=== PATIENT | female | born 1955 | race Hispanic/Latino ===

== ENCOUNTER → 2017-06-13 | Outpatient (CLI) | payer OTHER ==
[~2017-06-13] MED LIST: ALBU8.5H8 IH; AZEL137S11 NS; BUPR300T54 PO; CETI-261 PO; CLON0.5T4 PO; FLUT16H NASAL; FLUT1BLS IH; HYDR-4068 PO; IMIP10TA5 PO; MECL12.585 PO; MONT10TA24 PO; NITR0.4T SL; QUET300T44 PO; TRAZ300T2 PO; VERA-7 PO
== END | disposition home or self-care (01) ==
LOC: RAH 15:48
PROVIDERS: ATTEND Physical Medicine & Rehabilitation
DX: M41.85 Other forms of scoliosis, thoracolumbar region (principal)
CPT/HCPCS: 72070; 72081; 72100

== ENCOUNTER 2021-07-12 14:31 | Emergency (ER) | payer OTHER ==
[~2021-07-12] VITALS: Ht 160 cm; Wt 78.0 kg
[~2021-07-12 14:31] MED LIST changes: +BUPR-317 PO; -BUPR300T54 PO; +MECL-226 PO; -MECL12.585 PO; +MONT-39 PO; -MONT10TA24 PO; +QUET300T19 PO; -QUET300T44 PO; -VERA-7 PO; +VERA240T95 PO
[2021-07-12] MEDS ORDERED: DICL50TA9 PO (16:00)
[2021-07-12 16:18] VITALS: BP 168/85
== END 2021-07-12 16:19 | disposition home or self-care (01) ==
LOC: EDH 14:34
DX: S00.83XA Contusion of other part of head, initial encounter (principal); S19.9XXA Unspecified injury of neck, initial encounter; Z79.51 Long term (current) use of inhaled steroids; Z79.01 Long term (current) use of anticoagulants; W18.39XA Other fall on same level, initial encounter; Y93.89 Activity, other specified; Y92.89 Other specified places as the place of occurrence of the external cause; Y99.8 Other external cause status
CPT/HCPCS: 70450; 72125

== ENCOUNTER 2022-03-02 20:28 | Observation (INO) | payer OTHER ==
[~2022-03-02] VITALS: Ht 157.5 cm; Wt 78.1 kg
[~2022-03-02 20:28] MED LIST changes: +DICL50TA9 PO
[2022-03-02] MEDS ORDERED: NITROGLYCERIN 1GM OINT 1 INCH/1GM TD ONE ×2 (20:49→21:00)
[2022-03-02 20:55] LABS: BASOPHILS % (AUTO) 0.4 % (0.0-5.0); EOSINOPHILS % (AUTO) 1.1 % (0.0-8.0); HEMATOCRIT 35.7 % (36-48); LYMPHOCYTES % (AUTO) 24.9 % (21.0-51.0); MEAN CORPUSCULAR HEMOGLOBIN 30.2 pg (27.0-33.0); MEAN CORPUSCULAR HGB CONC 35.6 g/dL (32.0-36.0); MEAN CORPUSCULAR VOLUME 84.8 fL (79-99); MONOCYTES % (AUTO) 10.5 % (3.0-13.0); NEUTROPHILS % (AUTO) 62.8 % (40.0-77.0); PLATELET COUNT (AUTO) 221 K/uL (130-400); RED BLOOD CELL COUNT(AUTO) 4.21 MIL/uL (4.00-5.50); RED CELL DISTRIBUTION WIDTH 12.1 % (11.0-15.5)
[2022-03-02 21:15] LABS: ALBUMIN 3.9 g/dL (3.5-5.0); CREATININE 1.2 mg/dL (0.5-1.5); TOTAL PROTEIN, SERUM 7.3 g/dL (6.0-8.3)
[2022-03-02 21:16] LABS: POTASSIUM 2.6 mmol/L (3.5-5.1)
[2022-03-02] MEDS ORDERED: KCL 20 MEQ ERTAB PO ONE ×2 (21:40→22:00)
[2022-03-02 21:52] LABS: APPEARANCE,URINE CLEAR (CLEAR); BILIRUBIN,URINE NEGATIVE (NEGATIVE); COLOR,URINE LIGHT-YELLOW (YELLOW); GLUCOSE, URINE (UA) NEGATIVE (NEGATIVE); KETONES,URINE NEGATIVE (NEGATIVE); LEUKOCYTE ESTERASE ,URINE NEGATIVE Leu/uL (NEGATIVE); NITRATE,URINE NEGATIVE (NEGATIVE); OCCULT BLOOD,URINE NEGATIVE (NEGATIVE); PH,URINE 6.5 (5.0-8.0); PROTEIN,URINE NEGATIVE (NEGATIVE); UROBILINOGEN,URINE 0.2 mg/dL (0.2-1.0)
[2022-03-02] MEDS ORDERED: DOCUSATE SODIUM 100 MG CAP PO PRN (23:00)
[2022-03-02] MEDS ORDERED: ONDANSETRON 4MG INJ IVP PRN (23:00)
[2022-03-02] MEDS ORDERED: LACTULOSE 20 GM/30 ML UDCUP PO PRN (23:00)
[2022-03-02] MEDS ORDERED: ALBUTEROL 0.083% 2.5 MG/3 ML INH IH PRN (23:00)
[2022-03-02] MEDS ORDERED: HYDRALAZINE 20MG/ML VIAL IV PRN (23:00)
[2022-03-02] MEDS ORDERED: CLONIDINE HCL 0.1 MG TABLET PO PRN (23:00)
[2022-03-02] MEDS ORDERED: TEMAZEPAM 15 MG CAPSULE PO PRN (23:00)
[2022-03-02] MEDS ORDERED: TRAMADOL HCL 50 MG TABLET PO PRN (23:00)
[2022-03-02] MEDS ORDERED: ACETAMINOPHEN 325 MG TAB PO PRN (23:00)
[2022-03-02] MEDS ORDERED: HYDR25TA PO (23:59)
[2022-03-02] MEDS ORDERED: OXYB10TA30 PO (23:59)
[2022-03-02] MEDS ORDERED: ATOR10TA69 PO (23:59)
[2022-03-02] MEDS ORDERED: QUET100T PO (23:59)
[2022-03-02] MEDS ORDERED: BUSP15 PO (23:59)
[2022-03-02] MEDS ORDERED: QUET400T PO (23:59)
[2022-03-03] MEDS ORDERED: NITROGLYCERIN 0.4 MG SL TAB SL SCH
[2022-03-03] MEDS ORDERED: OXYBUTYNIN 5 MG TAB.SR.24H PO SCH
[2022-03-03] MEDS ORDERED: ATORVASTATIN 10 MG TABLET PO SCH
[2022-03-03] MEDS ORDERED: CETI10TA57 PO (00:01)
[2022-03-03] MEDS ORDERED: AEC81 PO (00:01)
[2022-03-03] MEDS ORDERED: ASPIRIN 325MG EC TAB PO ONE (00:30)
[2022-03-03 00:40] LABS: CHLORIDE,URINE RANDOM 74 mmol/L (110-250); POTASSIUM,URINE RANDOM 20 mmol/L (25-125); SODIUM,URINE RANDOM 80 mmol/l (40-220)
[2022-03-03] MEDS ORDERED: HYDROCHLOROTHIAZIDE 25 MG TABLET ONE (00:54)
[2022-03-03] MEDS ORDERED: MECLIZINE HCL 12.5 MG TABLET ONE (00:54)
[2022-03-03] MEDS ORDERED: QUETIAPINE FUMARATE 100 MG TAB ONE (00:54)
[2022-03-03] MEDS ORDERED: BUSPIRONE HCL 5 MG TABLET PO ONE (00:54)
[2022-03-03 00:56] LABS: HEMOGLOBIN A1C 5.3 % (4.0-6.0)
[2022-03-03] MEDS ORDERED: QUETIAPINE FUMARATE 100 MG TAB PO SCH (01:00)
[2022-03-03] MEDS ORDERED: BUSPIRONE HCL 5 MG TABLET PO SCH (01:00)
[2022-03-03] MEDS ORDERED: HYDROCHLOROTHIAZIDE 25 MG TABLET PO ONE (01:00)
[2022-03-03 01:40] VITALS: BP 148/79
[2022-03-03 02:10] LABS: MAGNESIUM 1.5 mg/dL (1.80-2.40)
[2022-03-03] MEDS ORDERED: MAGNESIUM 2GM PREMIX 50ML 50 ML IV SCH (03:30)
[2022-03-03 04:00] VITALS: BP 135/77
[2022-03-03] MEDS ORDERED: LACTATED RINGERS 1000ML 1,000 ML IV SCH (05:00)
[2022-03-03 05:35] LABS: BASOPHILS % (AUTO) 0.3 % (0.0-5.0); EOSINOPHILS % (AUTO) 1.7 % (0.0-8.0); HEMATOCRIT 33.1 % (36-48); MEAN CORPUSCULAR HEMOGLOBIN 29.7 pg (27.0-33.0); MEAN CORPUSCULAR HGB CONC 34.4 g/dL (32.0-36.0); MEAN CORPUSCULAR VOLUME 86.2 fL (79-99); NEUTROPHILS % (AUTO) 69.7 % (40.0-77.0); PLATELET COUNT (AUTO) 197 K/uL (130-400); RED BLOOD CELL COUNT(AUTO) 3.84 MIL/uL (4.00-5.50); RED CELL DISTRIBUTION WIDTH 12.2 % (11.0-15.5); WHITE BLOOD COUNT (AUTO) 9.5 K/uL (4.8-10.8)
[2022-03-03 06:02] LABS: MAGNESIUM 1.6 mg/dL (1.80-2.40); PHOSPHORUS 3.8 mg/dL (2.5-4.9); THYROID STIMULATING HORMONE 2.73 uIU/mL (0.36-3.74)
[2022-03-03 08:45] VITALS: BP 143/68
[2022-03-03] MEDS ORDERED: PANTOPRAZOLE 40 MG TAB DR PO SCH (09:00)
[2022-03-03] MEDS ORDERED: HYDROCHLOROTHIAZIDE 25 MG TABLET PO SCH (09:00)
[2022-03-03] MEDS ORDERED: ENOXAPARIN SODIUM 30 MG/0.3 ML SQ SCH (09:00)
[2022-03-03] MEDS ORDERED: CETIRIZINE HCL 5 MG TABLET PO SCH (09:00)
[2022-03-03] MEDS ORDERED: MONTELUKAST SODIUM 10 MG TAB PO SCH (09:00)
[2022-03-03] MEDS ORDERED: MECLIZINE HCL 12.5 MG TABLET PO SCH (09:00)
[2022-03-03] MEDS ORDERED: ASPIRIN 81 MG EC TAB PO SCH (09:00)
[2022-03-03] MEDS: KCL 20 MEQ ERTAB PO PRN ×3 (11:04→19:12)
[2022-03-03 11:52] VITALS: BP 159/87
[2022-03-03] MEDS ORDERED: FAMO40TA75 PO (14:37)
[2022-03-03] MEDS ORDERED: KCL 20 MEQ ERTAB PO SCH (15:00)
[2022-03-03 15:58] VITALS: BP 144/76
[2022-03-03] MEDS ORDERED: MAGNESIUM 2GM PREMIX 50ML 50 ML IV PRN (16:30)
[2022-03-03 17:16] LABS: POTASSIUM 3.3 mmol/L (3.5-5.1)
[2022-03-03] MEDS ORDERED: VERAPAMIL HCL 240 MG SRTAB PO SCH (21:00)
== END 2022-03-03 19:12 | disposition home or self-care (01) ==
LOC: EDH 20:28 → EDHIP 22:47 → 3DH 03-03 01:25
PROVIDERS: ADMIT Internal Medicine Pulmonary Disease; ATTEND Internal Medicine Pulmonary Disease
DX: R07.89 Other chest pain (principal); E87.6 Hypokalemia; I20.0 Unstable angina; D72.829 Elevated white blood cell count, unspecified; I10 Essential (primary) hypertension; F32.A Depression, unspecified; J45.909 Unspecified asthma, uncomplicated; E78.5 Hyperlipidemia, unspecified; I48.91 Unspecified atrial fibrillation; K59.09 Other constipation; K21.9 Gastro-esophageal reflux disease without esophagitis; Z90.710 Acquired absence of both cervix and uterus; Z90.49 Acquired absence of other specified parts of digestive tract; Z79.899 Other long term (current) drug therapy
CPT/HCPCS: 99285; 83036; 82550 ×3; 80051; 84484 ×4; 80053; 83880; 85025 ×2; 85378; 81003; 36415 ×2; 71045; 76770; 93005 ×2; 96372; 96365; 82150; 84443; 83735 ×3; 84100; 83874 ×2; 84132 ×3; 82330; 80048; 83690; G0378 ×20; J3475; J7120; J1650

== ENCOUNTER 2022-09-10 09:57 | Emergency (ER) | payer OTHER ==
[~2022-09-10] VITALS: Ht 157.5 cm; Wt 75.7 kg
[~2022-09-10 09:57] MED LIST changes: +AEC81 PO; -ALBU8.5H8 IH; +ATOR10TA69 PO; -AZEL137S11 NS; -BUPR-317 PO; +BUSP15 PO; -CETI-261 PO; +CETI10TA57 PO; -CLON0.5T4 PO; -DICL50TA9 PO; +FAMO40TA75 PO; -FLUT16H NASAL; -FLUT1BLS IH; -HYDR-4068 PO; +HYDR25TA PO; -IMIP10TA5 PO; +OXYB10TA30 PO; +QUET100T PO; -QUET300T19 PO; -TRAZ300T2 PO
[2022-09-10 10:03] VITALS: BP 153/90
[2022-09-10] MEDS ORDERED: 0.9%NACL 1000ML 1,000 ML IV ONE (10:30)
[2022-09-10] MEDS ORDERED: ONDANSETRON 4MG INJ IVP ONE (10:30)
[2022-09-10] MEDS ORDERED: QUETIAPINE FUMARATE 25 MG TAB PO SCH ×2 (10:30)
[2022-09-10] MEDS ORDERED: BUSPIRONE HCL 5 MG TABLET PO SCH (10:30)
[2022-09-10] MEDS ORDERED: QUETIAPINE FUMARATE 100 MG TAB PO SCH (10:30)
[2022-09-10 10:36] LABS: BASOPHILS % (AUTO) 0.7 % (0.0-5.0); HEMATOCRIT 42.9 % (36-48); LYMPHOCYTES % (AUTO) 24.2 % (21.0-51.0); MEAN CORPUSCULAR HEMOGLOBIN 29.5 pg (27.0-33.0); MEAN CORPUSCULAR HGB CONC 34.7 g/dL (32.0-36.0); MONOCYTES % (AUTO) 12.8 % (3.0-13.0); NEUTROPHILS % (AUTO) 61.1 % (40.0-77.0); PLATELET COUNT (AUTO) 271 K/uL (130-400); RED BLOOD CELL COUNT(AUTO) 5.05 MIL/uL (4.00-5.50); RED CELL DISTRIBUTION WIDTH 12.3 % (11.0-15.5); WHITE BLOOD COUNT (AUTO) 8.1 K/uL (4.8-10.8)
[2022-09-10 10:47] LABS: ALBUMIN 4.4 g/dL (3.5-5.0)
[2022-09-10 10:49] LABS: APPEARANCE,URINE SL CLOUDY (CLEAR); BILIRUBIN,URINE SMALL mg/dL (NEGATIVE); COLOR,URINE YELLOW (YELLOW); GLUCOSE, URINE (UA) NEGATIVE (NEGATIVE); KETONES,URINE 5 mg/dL (NEGATIVE); LEUKOCYTE ESTERASE ,URINE NEGATIVE Leu/uL (NEGATIVE); NITRATE,URINE NEGATIVE (NEGATIVE); OCCULT BLOOD,URINE TRACE-INTACT (NEGATIVE); PROTEIN,URINE 30 mg/dL (NEGATIVE); UROBILINOGEN,URINE 0.2 mg/dL (0.2-1.0)
[2022-09-10 10:51] LABS: TOTAL PROTEIN, SERUM 8.7 g/dL (6.0-8.3)
[2022-09-10 10:52] LABS: POTASSIUM 2.8 mmol/L (3.5-5.1)
[2022-09-10] MEDS ORDERED: POTASSIUM BICARB/CIT AC 25 MEQ TABLET.EFF PO ONE (11:00)
[2022-09-10 11:37] LABS: BACTERIA,URINE Few /HPF (None Seen); RBC,URINE 0-1 /HPF (0-1); WBC,URINE 0-1 /HPF (0-1)
[2022-09-10] MEDS ORDERED: BUSP10TA3 PO (12:20)
[2022-09-10] MEDS ORDERED: QUET400T PO (12:20)
== END 2022-09-10 12:31 | disposition home or self-care (01) ==
LOC: EDH 09:57
DX: F19.239 Other psychoactive substance dependence with withdrawal, unspecified (principal); E87.6 Hypokalemia; R53.83 Other fatigue; R53.81 Other malaise; I10 Essential (primary) hypertension; F32.A Depression, unspecified; M19.90 Unspecified osteoarthritis, unspecified site; Z79.899 Other long term (current) drug therapy; Z90.89 Acquired absence of other organs; Z90.710 Acquired absence of both cervix and uterus
CPT/HCPCS: 99284; 96374; 96361; 80053; 85025; 81001; 36415; 84132; J7030; J2405

== ENCOUNTER → 2025-01-23 | Outpatient (CLI) | payer OTHER ==
[~2025-01-23] MED LIST changes: +BUSP10TA3 PO; +QUET400T PO
[2025-01-23 22:14] VITALS: PULSE 74; RESP 20
[2025-01-23 23:00] VITALS: PULSE 64; RESP 18
[2025-01-23 23:30] VITALS: PULSE 70; RESP 16
[2025-01-24] VITALS (11 sets, daily range): PULSE 58–68; RESP 14–18
--- NOTE | 2025-01-24 03:45 | NUR ---
HYDROCHLOROTHIAZIDE 25MG, VERAPAMIL 240MG,MONTELUKAST 10MG,HYDROCODONE 10MG, ALBUTEROL SULFATE 90MG,BREO ELLIPTA 200MG Addendum: 01/24/25 at 0355 by YODIT BOBBY Amended: Links added.
== END | disposition home or self-care (01) ==
LOC: SLP 20:20
PROVIDERS: ATTEND Family Medicine
DX: G47.33 Obstructive sleep apnea (adult) (pediatric) (principal)
CPT/HCPCS: 95810